=== PATIENT | female | born 1975 | race Caucasian/White ===

== ENCOUNTER 2019-03-21 09:11 | Day surgery (SDC) | payer BC ==
[~2019-03-21] VITALS: Ht 170.2 cm; Wt 73.5 kg
[2019-03-21] VITALS (7 sets, daily range): BP systolic 98–136
[~2019-03-21 09:11] MED LIST: CEFAZOLIN SOD 2 GM in D5W 50 ML IV ONE
[2019-03-21] MEDS ORDERED: LR 1,000 ML IV.SOLN IV ONE (11:25)
[2019-03-21] MEDS ORDERED: fentaNYL CITRATE 250 MCG/5 ML AMP IV ONE (11:25)
[2019-03-21] MEDS ORDERED: CLINDAMYCIN PHOSPHATE 60 ML TOPICAL SOLUTION TP ONE (11:25)
[2019-03-21] MEDS ORDERED: SEVOFLURANE 15 MIN GAS INH ONE (11:25)
[2019-03-21] MEDS ORDERED: PROPOFOL 200MG/ 20ML VIAL (DIPRIVAN) IV ONE (11:25)
[2019-03-21] MEDS ORDERED: GLYCOPYRROLATE 0.2 MG/ML VIAL IJ ONE (11:25)
[2019-03-21] MEDS ORDERED: ROCURONIUM BROMIDE 10 MG/ML (ZEMURON) IV ONE (11:25)
[2019-03-21] MEDS ORDERED: ONDANSETRON HCL 4 MG/2 ML VIAL IVP ONE ×2 (11:25→15:45)
[2019-03-21] MEDS ORDERED: NEOSTIGMINE METHYLSULFATE 1 MG/ML, 10 ML VIAL IVP ONE (11:25)
[2019-03-21] MEDS ORDERED: DEXAMETHASONE SOD PHOSPHATE 4 MG/ML VIAL IVP ONE (11:25)
[2019-03-21] MEDS ORDERED: MIDAZOLAM HCL 5 MG/5 ML VIAL IVP ONE ×2 (11:25→15:45)
[2019-03-21] MEDS ORDERED: BUPIVACAINE /EPINEPHRINE/PF 0.5% 30 ML VIAL INJ ONE (11:25)
[2019-03-21] MEDS ORDERED: FUROSEMIDE 20 MG/2 ML VIAL IVP ONE (11:25)
[2019-03-21] MEDS ORDERED: KETOROLAC TROMETHAMINE 30 MG VIAL IVP ONE (11:25)
[2019-03-21] MEDS ORDERED: POLYMYXIN 500,000/BACIT.10,000 UNITS in NS IRR 1 L IR ONE ×2 (11:34→16:15)
[2019-03-21] MEDS ORDERED: ONDANSETRON HCL 4 MG/2 ML VIAL IVP PRN ×2 (12:30→19:00)
[2019-03-21] MEDS ORDERED: ACETAMINOPHEN 325 MG TABLET PO PRN (12:30)
[2019-03-21 15:14] LABS: HEMATOCRIT 36.4 % (36-48); HEMOGLOBIN 12.7 g/dL (12.0-16.0)
[2019-03-21] MEDS ORDERED: DOPamine PREMIX 400 MG/250 ML BTL IV ONE (15:45)
[2019-03-21] MEDS ORDERED: ePHEDrine sulfate 50 MG/ML VIAL IVP ONE (15:45)
[2019-03-21] MEDS ORDERED: ATROPINE SULFATE 0.4 MG/ML VIAL IVP ONE (15:45)
[2019-03-21] MEDS ORDERED: BUPIVACAINE /DEX PF 0.75% SPINAL 2 ML AMP INJ ONE (15:45)
[2019-03-21] MEDS ORDERED: MORPHINE SULFATE 10MG/10ML PF AMP EP ONE (15:45)
[2019-03-21] MEDS ORDERED: NS 1000 ML IV.SOLN IV ONE (15:45)
[2019-03-21] MEDS ORDERED: KETOROLAC TROMETHAMINE 30 MG VIAL IM ONE (16:30)
[2019-03-21 16:43] LABS: HEMOGLOBIN 9.1 g/dL (12.0-16.0)
[2019-03-21] MEDS ORDERED: ACETAMINOPHEN 650 MG/20.3 ML UDC GT PRN (18:00)
--- NOTE | 2019-03-21 18:03 | NUR ---
ICU Pt brought to ICU 5, received report from Deepali DESAI. Temp 98.0 98/71 17 respirations 98% on 2 L via NC Pt denies pain 0/10 at this time
--- NOTE | 2019-03-21 18:29 | NUR ---
Family Pt's family is at bedside. Dr. Coyne answered all questions for the family at this time
[2019-03-21] MEDS ORDERED: NALOXONE HCL 1 MG in NACL 0.9% 1,000 ML IV PRN ×4 (18:56)
[2019-03-21] MEDS ORDERED: LR 1,000 ML IV SCH (18:56)
[2019-03-21] MEDS ORDERED: HYDROmorphone 2 MG/ML VIAL IVP PRN ×2 (19:00)
[2019-03-21] MEDS ORDERED: HYDROmorphone 1 MG INJ. 1 MG/ML AMPUL IVP PRN (19:00)
[2019-03-21] MEDS ORDERED: DIPHENHYDRAMINE HCL 50 MG CAPSULE PO PRN (19:00)
[2019-03-21] MEDS ORDERED: KETOROLAC TROMETHAMINE 60 MG/2 ML VIAL IM PRN (19:00)
[2019-03-21] MEDS ORDERED: MEPERIDINE HCL/PF 25 MG/ML DISP.SYRIN IVP PRN ×2 (19:00)
[2019-03-21] MEDS ORDERED: DIPHENHYDRAMINE INJ 50 MG/ML VIAL IVP PRN (19:00)
[2019-03-21] MEDS ORDERED: NALOXONE HCL 0.4 MG/ML AMP (NARCAN) IVP PRN ×3 (19:00)
--- NOTE | 2019-03-21 19:20 | NUR ---
Closing Notes Endorsed pt to night RN. Pt resting in bed with family at bedside, no complaints of pain 0/10.
--- NOTE | 2019-03-21 19:30 | NUR ---
PM ASSESSMENT REPORT RECEIVED FROM TESHA BARKSDALE. PT RECEIVED IN BED WITH EYES OPEN, AAOX4, AND ABLE TO VERBALIZE NEEDS. FAMILY IS AT BEDSIDE. VSS, NO S/S OF ACUTE DISTRESS NOTED. PT ON 2L NC. ST ON MONITOR. PT DENIES ANY PAIN OR DISCOMFORT AT THIS TIME. NO VAGINAL BLEEDING NOTED. SCDs IN PLACE. HOB ELEVATED, BED IN LOWEST POSITION, CALL LIGHT IN REACH. WILL CONTINUE TO MONITOR PT.
--- NOTE | 2019-03-21 19:45 | NUR ---
DR. LABOY ANESTHESIOLOGIST UPDATED ON PT CONDITION. NO NEW ORDERS RECEIVED AT THIS TIME. WILL CONTINUE TO MONITOR PT.
[2019-03-21] MEDS ORDERED: DIPHENHYDRAMINE INJ 50 MG/ML VIAL ONE (20:12)
--- NOTE | 2019-03-21 22:20 | NUR ---
DR. LABOY ANESTHESIOLOGIST CALLED FOR ANOTHER UPDATE AT THIS TIME. MD MADE AWARE THAT PT IS SLIGHTLY DISORIENTED AT THIS TIME. STATES THAT IT IS D/T THE DURAMORPH SHE WAS GIVEN IN SX AND SYMPTOMS SHOULD GET BETTER THE MEDICATION WEARS OFF. MD ALSO MADE AWARE OF HR GOING UP INTO 130s-140s. MD STATES TO OBTAIN H/H AT THIS TIME. WILL CARRY OUT ORDERED AND CONTINUE TO MONITOR PT.
[2019-03-22] VITALS (13 sets, daily range): BP systolic 101–141
[2019-03-22] MEDS ORDERED: CEFAZOLIN 1 GM IVPB PREMIX 50 ML IV ONE
[2019-03-22] MEDS ORDERED: ceFAZolin SODIUM 1 GM VIAL ONE (00:11)
[2019-03-22 00:15] LABS: HEMATOCRIT 34.7 % (36-48)
--- NOTE | 2019-03-22 07:00 | NUR ---
Received shift report from night RN using SBAR.
--- NOTE | 2019-03-22 07:30 | NUR ---
AM Assessment Pt A/O x4, pt has concerns about memory. No signs of discomfort but expresses mild pain in perineal area. Temperature of 99F. Will continue to monitor. Bed locked and in lowest position with call light in reach.
[2019-03-22 07:38] LABS: BASOPHILS % (AUTO) 0.3 % (0.0-2.0); HEMATOCRIT 29.6 % (36-48); HEMOGLOBIN 10.2 g/dL (12.0-16.0); LYMPHOCYTES # (AUTO) 2.9 K/uL (1.0-5.5); LYMPHOCYTES % (AUTO) 23.6 % (20.5-51.5); MEAN CORPUSCULAR HEMOGLOBIN 32 pg (27-31); MEAN CORPUSCULAR HGB CONC 35 % (32-36); MEAN CORPUSCULAR VOLUME 91 fL (79.0-98.0); MONOCYTES # (AUTO) 1.2 K/uL (0.0-1.0); MONOCYTES % (AUTO) 9.7 % (1.7-9.3); NEUTROPHILS % (AUTO) 66.4 % (40.0-70.0); PLATELET COUNT (AUTO) 244 K/uL (130-430); RED BLOOD CELL COUNT(AUTO) 3.24 MIL/uL (4.2-6.2); RED CELL DISTRIBUTION WIDTH 14.5 % (9.0-15.0); WHITE BLOOD COUNT (AUTO) 12.1 K/uL (4.8-10.8)
--- NOTE | 2019-03-22 08:00 | NUR ---
MD ROUNDS: DR. RENU SEARS HERE TO SEE PATIENT, DISCUSSED THE PLAN FOR THE DAY. VAGINAL PACKING REMOVED JUAN MIGUEL SEARS. SEPULVEDA CATHETER DISCONTINUED.
--- NOTE | 2019-03-22 09:00 | NUR ---
Pt using bedside commode. Urine output 300cc.
--- NOTE | 2019-03-22 10:30 | NUR ---
Pt using bedside commode. Urine output 300cc.
--- NOTE | 2019-03-22 10:45 | NUR ---
Bladder scan revealed 45cc of urine.
--- NOTE | 2019-03-22 11:45 | NUR ---
MD Fuentes orders received via TO.
[2019-03-22] MEDS ORDERED: CEPH-568 PO (11:49)
--- NOTE | 2019-03-22 12:00 | NUR ---
Discharge PT alert and orientated. DC right wrist #18 and left wrist #20. Both IV intact and patent with no signs of infiltration or signs of infection. Pt temp at 99.2F. No verbal statement of pain or discomfort. PT able to stand with no orthostatic hypotension. Mother (Kim) with Pt and given discharge instructions with medication prescription, follow-up appointment, and work modification notes. Pt provided private transportation and ambulated by herself and discharged with no incident.
== END 2019-03-22 12:00 | disposition home or self-care (01) ==
LOC: SDS 09:11 → SMU 09:12 → EDBEDREQ 19:43 → SIC 23:25 → SDS 03-22 12:00
PROVIDERS: ATTEND Specialist
DX: N39.3 Stress incontinence (female) (male) (principal); N39.41 Urge incontinence; N81.11 Cystocele, midline; N36.8 Other specified disorders of urethra; E66.9 Obesity, unspecified; Z68.25 Body mass index [BMI] 25.0-25.9, adult
CPT/HCPCS: 36415; 36430; 57240; 57288; 85018; 85025; 86886; 86900; 86901; 86920; 87081; 88302; C1771; J0461; J0690 ×3; J1100; J1200; J1265; J1885; J1940; J2250; J2274; J2310; J2405 ×2; J2704; J2710; J3010; J3490 ×3; J7030; J7060; J7120; P9021